=== PATIENT | female | born 1945 | race Caucasian/White ===

== ENCOUNTER 2016-10-31 22:07 | Emergency (ER) | payer OTHER ==
[~2016-10-31] VITALS: Ht 154.9 cm; Wt 70.0 kg
[2016-10-31 22:08] VITALS: BP 184/84; PULSE 64; RESP 16; TEMP 98; O2SAT 96
[2016-10-31] MEDS ORDERED: ZOCO5TAB PO (22:22)
[2016-10-31] MEDS ORDERED: LEXA10TA PO (22:22)
[2016-10-31 22:24] VITALS: BP 196/86; PULSE 57; RESP 16; O2SAT 98
[2016-10-31 22:52] VITALS: BP 177/84; PULSE 63; RESP 16; O2SAT 98
[2016-10-31] MEDS ORDERED: LISI10TA3 PO (23:03)
[2016-10-31] MEDS ORDERED: ZITHTAB PO (23:03)
--- NOTE | 2016-10-31 23:03 | PD ---
HPI Chief Complaint: Hypertension Time Seen by Provider: 22:42 Travel History International Travel<30 days: No Contact w/Intl Traveler<30days: No Traveled to known affect area: No History of Present Illness HPI 71-year-old female complains of elevated blood pressure. Patient states that she has been seen by personal physician every few months and the blood pressure runs around 130s systolically. Patient states that she checked her blood pressures morning and systolic blood pressure running about 140/150 range. Patient denies any headache. Patient denies any chest pain or shortness of breath. Patient denies abdominal pain. Patient denies any focal weakness or numbness of extremity. Patient states that she had productive cough for the past several days. Patient denies any fever chills. PFSH Past Medical History Anxiety: Yes High Cholesterol: Yes Influenza Vaccination: No : 5 Para: 5 Past Surgical History Cholecystectomy: Yes Tonsillectomy: Yes Other Surgery: Yes (breast reduction) Social History Alcohol Use: No Tobacco Use: No Substance Use: No Allergies-Medications (Allergen,Severity, Reaction): Coded Allergies: No Known Allergies (Verified , 10/31/16) Reported Meds & Prescriptions Reported Meds & Active Scripts Active Reported Zocor (Simvastatin) 5 Mg Tab 5 Mg PO HS Lexapro (Escitalopram Oxalate) 10 Mg Tab 10 Mg PO DAILY Review of Systems General / Constitutional: No: Fever Eyes: No: Visual changes HENT: No: Headaches Cardiovascular: No: Chest Pain or Discomfort Respiratory: Positive: Cough, No: Shortness of Breath Gastrointestinal: No: Abdominal Pain Genitourinary: No: Dysuria Musculoskeletal: No: Pain Skin: No Rash Neurologic: No: Weakness Psychiatric: No: Depression Endocrine: No: Polydipsia Hematologic/Lymphatic: No: Easy Bruising Physical Exam Narrative GENERAL: Well-nourished, well-developed patient. SKIN: Warm and dry. HEAD: Normocephalic. EYES: No scleral icterus. No injection or drainage. NECK: Supple, trachea midline. No JVD or lymphadenopathy. CARDIOVASCULAR: Regular rate and rhythm without murmurs, gallops, or rubs. RESPIRATORY: Breath sounds equal bilaterally. No accessory muscle use. GASTROINTESTINAL: Abdomen soft, non-tender, nondistended. MUSCULOSKELETAL: No cyanosis, or edema. BACK: Nontender without obvious deformity. No CVA tenderness. Neurologic exam normal. Data Data Last Documented VS Vital Signs Date Time Temp Pulse Resp B/P Pulse Ox O2 Delivery O2 Flow Rate FiO2 10/31/16 22:52 63 16 177/84 98 Room Air 10/31/16 22:08 98.0 [facility] Medical Decision Making Medical Screen Exam Complete: Yes Emergency Medical Condition: Yes Differential Diagnosis Differential diagnosis including transient elevated blood pressure, new-onset hypertension, URI, bronchitis, pneumonia. Narrative Course 71-year-old female with elevated blood pressure and productive cough. Blood pressure was elevated today at home. Blood pressure was normal 2 months ago. I advised patient that she is to check her blood pressure again to moderate persistent elevated she can started on lisinopril otherwise follow-up with her personal physician for blood pressure check. Z-Yovanny will be given for productive cough. Diagnosis Primary Impression: Bronchitis Additional Impression: Elevated blood pressure reading Patient Instructions: General Instructions Additional Instructions: Repeat blood pressure checked again in a.m. Patient may start lisinopril if persistent elevated blood pressure. Z-Yovanny as directed. Follow-up with personal physician for elevated blood pressure. Return if worse. Med/Other Pt SpecificInfo: Prescription(s) given Scripts Azithromycin (Zithromax Z-Yovanny)250 Mg [id number] Mg PO DIRECTED #1 DSPK Ref 0 500 MG (2 tabs) day 1, then 1 tab days 2-5. Prov:Black Jordan MD 10/31/16 Lisinopril 10 Mg Tab10 Mg PO DAILY #30 TAB Ref 0 Prov:Black Jordan MD 10/31/16 Disposition: 01 DISCHARGE HOME Condition: Stable Black Jordan MD Oct 31, 2016 23:03
[2016-10-31 23:08] VITALS: BP 168/78; PULSE 58; RESP 16; O2SAT 96
== END 2016-10-31 23:11 | disposition home or self-care (01) ==
LOC: NEPE 22:07
DX: J40 Bronchitis, not specified as acute or chronic (principal); R03.0 Elevated blood-pressure reading, without diagnosis of hypertension
CPT/HCPCS: 99283